=== PATIENT | female | born 1980 | race Caucasian/White ===

== ENCOUNTER 2016-08-17 22:50 | Emergency (ER) | payer OTHER ==
[~2016-08-17] VITALS: Ht 170.2 cm; Wt 58.0 kg
[2016-08-17 22:52] VITALS: BP 108/71
[2016-08-17] MEDS ORDERED: NAPROXEN 500 MG TABLET PO ONE (23:30)
[2016-08-17] MEDS ORDERED: KETOROLAC 30 MG/1 ML ONE (23:35)
[2016-08-18] MEDS ORDERED: KETOROLAC 60 MG/2 ML IM ONE
== END 2016-08-18 00:12 | disposition home or self-care (01) ==
LOC: ED 23:59
DX: S51.851A Open bite of right forearm, initial encounter (principal); S50.811A Abrasion of right forearm, initial encounter; F17.210 Nicotine dependence, cigarettes, uncomplicated; W54.0XXA Bitten by dog, initial encounter; Y93.89 Activity, other specified; Y92.89 Other specified places as the place of occurrence of the external cause; Y99.9 Unspecified external cause status
CPT/HCPCS: 73090; 96372; 99284; J1885

== ENCOUNTER 2016-08-24 21:42 | Emergency (ER) | payer OTHER ==
[~2016-08-24] VITALS: Ht 170.2 cm; Wt 58.2 kg
[2016-08-24 21:45] VITALS: BP 129/67
[2016-08-24] MEDS ORDERED: KETOROLAC 30 MG/1 ML IM ONE (22:00)
[2016-08-24] MEDS ORDERED: KETOROLAC 30 MG/1 ML ONE (22:04)
== END 2016-08-24 23:19 | disposition home or self-care (01) ==
LOC: ED 23:00
DX: S83.92XA Sprain of unspecified site of left knee, initial encounter (principal); Z88.2 Allergy status to sulfonamides; X58.XXXA Exposure to other specified factors, initial encounter; Y93.89 Activity, other specified; Y99.8 Other external cause status; Y92.89 Other specified places as the place of occurrence of the external cause
CPT/HCPCS: 29505; 73564; 96372; 99284; J1885